=== PATIENT | female | born 2000 | race Two or more races ===

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

== ENCOUNTER 2021-02-14 10:04 | Emergency (ER) | payer OTHER ==
[~2021-02-14] VITALS: Ht 154.9 cm; Wt 54.9 kg
== END 2021-02-14 14:47 | disposition home or self-care (01) ==
LOC: ER 10:04 → EMR PED 10:04 → ER 12:50
DX: B34.9 Viral infection, unspecified (principal); Z11.52 Encounter for screening for COVID-19

== ENCOUNTER 2021-08-22 08:00 | Outpatient (CLI) | payer OTHER | END 2021-08-22 08:30 | disposition home or self-care (01) | LOC: PPH VACUNA 08:00 | PROVIDERS: ATTEND Emergency Medicine Pediatric Emergency Medicine | DX: Z23 Encounter for immunization (principal) ==

== ENCOUNTER 2021-11-17 08:45 | Emergency (ER) | payer OTHER ==
[~2021-11-17] VITALS: Ht 154.9 cm; Wt 56.7 kg
== END 2021-11-17 11:40 | disposition home or self-care (01) ==
LOC: EMR PED 08:45
DX: U07.1 COVID-19 (principal)

== ENCOUNTER 2022-08-10 13:10 | Emergency (ER) | payer OTHER ==
[~2022-08-10] VITALS: Ht 152.4 cm; Wt 56.7 kg
[2022-08-10] MEDS ORDERED: ZITHROMAX200 MG PO (14:38)
== END 2022-08-10 15:01 | disposition home or self-care (01) ==
LOC: ER 13:10 → EMR PED 13:12
DX: J40 Bronchitis, not specified as acute or chronic (principal); Z20.822 Contact with and (suspected) exposure to COVID-19

== ENCOUNTER 2023-01-08 18:19 | Emergency (ER) | payer OTHER ==
[~2023-01-08] VITALS: Ht 154.9 cm; Wt 59.0 kg
[~2023-01-08 18:19] MED LIST changes: +ZITHROMAX200 MG PO
== END 2023-01-08 21:00 | disposition home or self-care (01) ==
LOC: ER 18:19
DX: U07.1 COVID-19 (principal); R53.81 Other malaise

== ENCOUNTER 2025-02-16 08:24 | Outpatient (CLI) | payer OTHER | END 2025-02-16 08:28 | disposition home or self-care (01) | LOC: SONOGRAMA 08:24 | PROVIDERS: ATTEND Internal Medicine | DX: R10.9 Unspecified abdominal pain (principal); R10.11 Right upper quadrant pain ==